=== PATIENT | female | born 2000 ===

== ENCOUNTER → 2023-10-23 | Outpatient (CLI) | payer OTHER ==
[2023-10-27 08:11] LABS: APTIMA MEDIA TYPE Unisex Swab; C. TRACHOMATIS BY TMA Negative (Negative); N. GONORRHOEAE BY TMA Negative (Negative); SPECIMEN SOURCE Cervical; T. VAGINALIS BY TMA Negative (Negative)
== END ==
LOC: LAB 14:57 → LAB SHORT 14:57
PROVIDERS: Physician Assistant Medical
DX: R10.2 Pelvic and perineal pain (principal)
CPT/HCPCS: 87491; 87591; 87661